=== PATIENT | female | born 1990 | race Caucasian/White ===

== ENCOUNTER 2016-07-25 16:57 | Emergency (ER) | payer MEDICAID ==
--- NOTE | ~2016-07-25 | ER ---
PATIENT'S NAME: DEVI CHARLTON [facility] AGE: 26 Y [address] ROOM: [place] [address] LOCATION: ED ADMIT DATE: 07/25/2016 ER/Outpatient Report DISCHARGE DATE: 07/25/2016 FAMILY PHYSICIAN: Abilio Torre MD ATTENDING PHYSICIAN: Manisha Neri Time of Arrival: 1713 hours. Time of Evaluation: 1715 hours. CHIEF COMPLAINT: Vaginal cramps, spotting. HISTORY OF PRESENT ILLNESS: The patient states approximately 1-1/2 hours prior to arrival, she started having vaginal cramping and then was spotting. Said that she has passed a couple of clots. She has had some pain with urination but no frequency or urgency. She reports that she had a positive home test on 07/20/2016. States her last menstrual period was on 06/21/2016. This would be her second . She is a 2, para 1, AB 0. She states she did have preeclampsia with HELLP disease with the first and ended up with a . She is scheduled to see Dr. Torre but has not been seen yet. ALLERGIES: NO KNOWN ALLERGIES. CURRENT MEDICATIONS: vitamins. PAST MEDICAL HISTORY: Preeclampsia with HELLP during . PAST SURGICAL HISTORY: , tonsils and adenoids, wisdom teeth, ganglion cyst removal of her foot. SOCIAL HISTORY: She denies use of tobacco, drugs, or alcohol. REVIEW OF SYSTEMS: All negative other than those mentioned in the HPI. PHYSICAL EXAMINATION: VITAL SIGNS: She weighs 140.3 kg, blood pressure is 130/85, pulse is 78, respirations 20, temperature of 97 tympanic, O2 saturation 100% on room air. PATIENT'S NAME: DEVI CHARLTON [facility] AGE: 26 Y [address] ROOM: [place] [address] LOCATION: [facility] ADMIT DATE: 07/25/2016 ER/Outpatient Report DISCHARGE DATE: 07/25/2016 FAMILY PHYSICIAN: Abilio Torre MD ATTENDING PHYSICIAN: Manisha Neri GENERAL: She is awake, alert, and oriented x4. SKIN: [place], warm, and dry. RESPIRATIONS: Even and nonlabored. Lung sounds are clear throughout. HEART: Regular rate and rhythm. ABDOMEN: Soft and nondistended. Bowel sounds are present. LABORATORY DATA AND X-RAYS: Lab work was completed. CBC is within normal limits. Chem panel is within normal limits. Clean-catch UA showed leukocytes and blood, but micro showed white blood cells 0-2 with few bacteria and red blood cells were only 2-5. Her serum HCG was 87. The patient did not have any spotting or discharge vaginally while she was here in the ER. Upon further questioning, she did state that she had intercourse this afternoon with her , and the bleeding did start after that. IMPRESSION: , threatened miscarriage. PLAN: Home, rest, fluids. Tylenol as needed. Discussed with the patient nothing in the vagina. No tampons. No sexual intercourse. No douching. If she continues to have bleeding or it worsens, she is welcome to return to the ER. Otherwise, I would like her to see her primary provider within the next 2 to 3 days to have her levels rechecked and verify that they are not dropping. The patient's blood type is A positive, and she was informed of that. MARTHA BRYANT APRN FOR MD JANNA WILLETT/k[place]ton /[id number] d: 07/26/167 t: 08/01/16 192, OUTPATIENT REPORT
[2016-07-25 17:34] LABS: BILIRUBIN URINE NEGATIVE (NEGATIVE); BLOOD URINE 250 /UL (NEGATIVE); GLUCOSE URINE NEGATIVE (NEGATIVE); KETONE URINE 15 mg/dL (NEGATIVE); LEUKOCYTES URINE 25 /UL (NEGATIVE); NITRITE URINE NEGATIVE (NEGATIVE); PROTEIN URINE NEGATIVE (NEGATIVE); SPEC GRAVITY URINE 1.025 (1.003-1.035); UROBILINOGEN URINE NORMAL (NORMAL)
[2016-07-25 17:38] LABS: COLOR URINE YELLOW (YELLOW); TURBIDITY URINE 1+ (CLEAR)
[2016-07-25 17:42] LABS: BASOPHIL % 0.4 %; EOSINOPHIL # 0.2 K/uL (0.0-0.5); EOSINOPHIL % 1.6 %; HEMATOCRIT 41.8 % (33.0-46.0); HEMOGLOBIN 14.2 g/dL (11.0-15.0); IMMATURE GRANULOCYTE % 0.4 %; LYMPHOCYTE # 3.2 K/uL (0.8-4.0); LYMPHOCYTE % 29.9 %; MCH 30.1 pg (27.0-34.0); MCV 88.6 fl (83.0-98.0); MONOCYTE # 0.5 K/uL (0.0-1.0); MONOCYTE % 4.3 %; MPV 10.9 fl (9.4-12.4); NEUTROPHIL # (ANC) 6.7 K/uL (1.8-7.8); NEUTROPHIL % 63.4 %; NRBC % 0 /100WBC (0-0.00); PLATELET COUNT 325 K/uL (150-450); RBC 4.72 M/uL (3.50-5.00); RDW-CV 11.8 % (11.9-14.6); WBC 10.5 K/uL (4.0-11.0)
[2016-07-25 17:45] LABS: BACTERIA URINE FEW (NEGATIVE); WBC URINE 0-2 #/HPF (NEGATIVE)
[2016-07-25 17:59] LABS: ALK PHOS 50 IU/L (33-138); ALT 35 IU/L (12-78); ANION GAP 9.8 (10.0-19.0); AST 22 IU/L (10-40); BLOOD UREA NITROGEN 8 mg/dL (6-24); CALCIUM 8.6 mg/dL (8.5-10.5); CHLORIDE 108 mMol/L (96-110); CO2 27 mMol/L (22-32); CREATININE 0.6 mg/dL (0.5-1.1); ESTIMATED GFR (MDRD EQUATION) > 60; POTASSIUM 3.8 mMol/L (3.7-5.1); SODIUM 141 mMol/L (135-145); TOTAL BILIRUBIN 0.4 mg/dL (0.0-1.5); TOTAL PROTEIN 7.5 g/dL (6.0-8.4)
== END 2016-07-25 18:25 | disposition disaster alternative care site (69) ==
LOC: GMED 16:57
PROVIDERS: Nurse Practitioner Family
DX: O20.0 Threatened abortion (principal); Z98.890 Other specified postprocedural states

== ENCOUNTER 2016-10-24 22:45 | Emergency (ER) | payer MEDICAID ==
--- NOTE | ~2016-10-24 | ER ---
PATIENT'S NAME: DARIUS VILLASENOR [facility] AGE: 26 Y [address] ROOM: [place] [address] LOCATION: [facility] ADMIT DATE: 10/24/2016 ER/Outpatient Report DISCHARGE DATE: FAMILY PHYSICIAN: Abilio Torre MD ATTENDING PHYSICIAN: Lilian Rose HISTORY OF PRESENT ILLNESS: This is a 26-year-old female, who presents today with two complaints. The first is a migraine headache. She says it is throbbing on the left side of her head, which she rates a 9/10 improving now after she took an Advil. She also has some epigastric pain that started this morning. Does not radiate. It does not radiate to the right side of her abdomen or to her back or to the groin, just in the epigastric area. She denies any vomiting, but reports some nausea, no diarrhea. She says she woke up with this abdominal pain in the morning and then developed a headache, then decided to come in. Improved with Aleve. PAST MEDICAL HISTORY: Includes migraines, history of preeclampsia with her previous two years ago at 31 weeks' she states. PAST SURGICAL HISTORY: Includes , wisdom teeth, right foot surgery. Last menstrual period was 09/23/2016. SOCIAL HISTORY: She does not smoke, drink, or use any drugs. MEDICATIONS: Please see med list. ALLERGIES: NONE. REVIEW OF SYSTEMS: Reviewed by me and negative with the exception of those discussed in the HPI. PHYSICAL EXAMINATION: VITAL SIGNS: The patient is 5 feet and 7 inches, she weighs 136 kg, blood pressure 168/100, heart rate 57, respiratory rate 16, temperature is 93, sats are 98% on room air. GENERAL: The patient is in no acute distress. She is smiling, interactive, speaking with her at bedside, completely nontoxic. HEENT: Pupils equal and reactive to light. They constrict appropriately. She tracks appropriately. She has no photophobia. PATIENT'S NAME: DARIUS VILLASENOR [facility] AGE: 26 Y [address] ROOM: [place] [address] LOCATION: [facility] ADMIT DATE: 10/24/2016 ER/Outpatient Report DISCHARGE DATE: FAMILY PHYSICIAN: Abilio Torre MD ATTENDING PHYSICIAN: Lilian Rose HEART: Regular rate and rhythm. LUNGS: Her lung sounds are clear. ABDOMEN: She is morbidly obese and has a soft pannus, but she has no abdominal tenderness whatsoever. No epigastric tenderness. No right upper quadrant tenderness. Negative Hendricks's sign. No right lower quadrant tenderness. No left lower quadrant tenderness. No CVA tenderness bilaterally. EXTREMITIES: She moves all extremities without any difficulty. She has no pedal edema. Strength in bilateral upper extremities 5/5, lower extremities 5/5. Intact sensation in bilateral upper and lower extremities. Equal grasp strength bilaterally. EMERGENCY ROOM COURSE: The patient was given Phenergan and Toradol with complete resolution of her symptoms. She will be discharged home. She has no other complaints. Given precautions. IMPRESSION: Epigastric pain, migraine. LILIAN ROSE MD CAW/modl /[id number] d: 10/25/168 t: 10/26/16 0406, OUTPATIENT REPORT
== END 2016-10-25 00:01 | disposition disaster alternative care site (69) ==
LOC: GMED 22:45
DX: G43.909 Migraine, unspecified, not intractable, without status migrainosus (principal); R10.13 Epigastric pain; Z98.890 Other specified postprocedural states; Z98.818 Other dental procedure status; Z90.89 Acquired absence of other organs; Z79.899 Other long term (current) drug therapy
CPT/HCPCS: J1885; J2550